=== PATIENT | female | born 1975 | race Caucasian/White ===

== ENCOUNTER 2016-11-07 16:34 | Emergency (ER) | payer OTHER, MEDICAID ==
[2016-11-07 17:12] VITALS: BP 100/70; PULSE 68; RESP 16; TEMP 98.6; O2SAT 99
--- NOTE | 2016-11-07 17:46 | UCPHY ---
[id number] [id number] 11/07/16 16:59 HPI/ROS: CHIEF COMPLAINT: left Knee pain HISTORY OF PRESENT ILLNESS: 41-year-old female presents the urgent care complaining of right anterior knee pain. Patient reports she was going through a screen door when the screen door closed on her knee, the metal edge hit her anterior knee. Patient reports she had immediate sharp pain in this knee. She did not fall, denies numbness or tingling in this leg, denies other injuries. No previous injury to this leg. (Lidia Garner) Physical Exam: GEN: Awake, alert, oriented, no acute distress RESP: nl resp effort MSK: Right knee with full flexion and extension, negative Arlene's, negative drawer, negative medial and lateral Sussy, negative valgus and varus stress. Mild tenderness to palpation over contusion over patella SKIN: 1 cm x 1 cm area of ecchymosis with tenderness to palpation over patella (Lidia Garner) Constitutional: Initial Vital Signs Temperature (C) 37.0 C 11/07/16 17:06 Heart Rate 68 11/07/16 17:06 Respiratory Rate 16 11/07/16 17:06 Blood Pressure 100/70 11/07/16 17:06 O2 Sat (%) 99 11/07/16 17:06 O2 Delivery Mode Room Air Allergies/Adverse Reactions: No Known Allergies Allergy (Verified 11/07/16 17:05) Home Medications: Medication Instructions Recorded NK [No Known Home Meds] 11/07/16 MDM/Departure - MDM Diagnostics: Right knee x-ray independently reviewed by me- Normal (Lidia Garner) ED Course/Re-evaluation: Urgent Care PA supervision Physician documentation: The patient was evaluated and managed by the physician drafter assistant. My co- signature indicates that I have reviewed this chart and I agree with the findings and plan of care as documented. I am the secondary supervising physician. (George Clarke) - Depart Disposition: Home, Routine, Self-Care Clinical Impression: Contusion of right knee Qualifiers: Encounter type: initial encounter Qualifier Code: (S80.01XA) Contusion of right knee, initial encounter Condition: Good Instructions: Knee Pain (ED), Contusion in Adults (ED) Additional Instructions: Rest, ice, elevate, take 600mg of ibuprofen every 8 hours with food for 3-5 days as needed for pain and swelling. Follow up with orthopedist for pain that is not improving in 7-10 days. Return to the emergency department for any numbness, tingling, discoloration of you limb or other concerns. Referrals: Cira Zhu MD [Medical Doctor] - As per Instructions (orthopedist train operations manager) - PQRS PQRS Measurement: na (Lidia Garner)
--- NOTE | 2016-11-07 18:16 | DX ---
Right Knee, 4 Views, at 5:24 PM CLINICAL HISTORY: 41-year-old female who hit her right knee with a metal-edged door today, complainin g of localized pain. COMPARISON STUDY: None. FINDINGS: Bone mineralization is preserved. There is no acute fracture or dislocation, although there may be a mild component of patella nicole. There is no suprapatellar joint effusion, or loose osteocho ndral body. There is some minor degenerative pinna pinnacling of the lateral tibial spine. On the sun rise view, there is no patellofemoral joint space narrowing, tilting, or scott subluxation. IMPRESSION: There is no acute osseous abnormality identified. If there is further clinical concern regarding the patient's knee pain, MR imaging could be considere d.
== END 2016-11-07 17:50 | disposition home or self-care (01) ==
LOC: CED 16:34
DX: S80.01XA Contusion of right knee, initial encounter (principal); W23.0XXA Caught, crushed, jammed, or pinched between moving objects, initial encounter
CPT/HCPCS: 73564; G0463; 99214-PO